=== PATIENT | male | born 1960 | race Two or more races ===

== ENCOUNTER 2018-01-27 14:26 | Day surgery (SDC) | payer OTHER ==
[2018-01-24 16:48] VITALS: BMI 27.1
[2018-01-27] MEDS ORDERED: MIDAZOLAM HCL 2 MG/2 ML SINGLE DOSE VIAL ONE (15:18)
--- NOTE | 2018-01-27 16:08 | OP ---
Operative Note - Note: Operative Date: 01/27/18 Pre-Operative Diagnosis: Right kidney stone Operation: Right ESWL Findings: 6 mm right kidney lower pole stone Post-Operative Diagnosis: Same as Pre-op Surgeon: Florencio Butler (no intraoperative complications) Anesthesia: Fractional Estimated Blood Loss (mls): 0
[2018-01-27 18:13] VITALS: BP 120/68; PULSE 62; TEMP 97.5
--- NOTE | 2018-01-27 22:34 | OP ---
DATE OF OPERATION: 01/27/2018 PREOPERATIVE DIAGNOSIS: Right renal stone. POSTOPERATIVE DIAGNOSIS: Right renal stone. PROCEDURE: Right extracorporeal shock wave lithotripsy. ATTENDING: Rosie Hernandez MD ANESTHESIA: Fractional. DESCRIPTION OF OPERATION: The patient was brought in the operating room, placed in supine position on the operating room table. Ultrasonography and fluoroscopy were performed. A 6-mm right lower pole stone is identified. Anesthesia and preoperative antibiotics were then administered. With this accomplished, shock wave lithotripsy was performed; 2500 impulses at 17 joules of power were administered to the stone with excellent fragmentation under real-time ultrasonography and fluoroscopy noted. No complications were noted. The disposition of the patient was to the recovery room. ROSIE HERNANDEZ M.D. [id number]
== END 2018-01-27 17:20 | disposition home or self-care (01) ==
LOC: JASU-SURG 14:26
PROVIDERS: ATTEND Urology
PROC: 0TF3XZZ Fragmentation in Right Kidney Pelvis, External Approach (ICD-10-PCS; principal; 2018-01-27 15:30)
DX: N20.0 Calculus of kidney (principal)